=== PATIENT | male | born 1950 | race Caucasian/White ===

== ENCOUNTER → 2017-06-23 | Outpatient (CLI) | payer OTHER, MEDICARE ==
[~2017-06-23] MED LIST: ACET500T57 PO; ALLO300T2 PO; WARF10TA4 PO
[2017-06-23 09:32] LABS: BASO % 0.3 %; BASO ABS # 0.02 K/uL (0-0.2); COMPLETE YES; EOS % 2.1 %; HEMATOCRIT 46.6 % (42-52); IG% 0.4 %; LYMPH % 23.7 %; LYMPH ABS # 1.79 K/uL (1.2-3.4); MEAN CELL VOLUME 87.9 fL (80-100); MEAN CORPUSCULAR HEMOGLOBIN 30.2 pg (25-34); MEAN CORPUSCULAR HGB CONC 34.3 g/dl (32-36); MEAN PLATELET VOLUME 10.6 fL (7.4-10.4); MONO % 8.8 %; NEUT % 64.7 %; PLATELET COUNT 147 K/uL (130-400); WHITE BLOOD COUNT 7.54 K/uL (4.8-10.8)
[2017-06-23 10:22] LABS: ALB/GLOB RATIO 1.3 (0.9-2); ALKALINE PHOSPHATASE 70 U/L (45-117); ALT/SGPT 27 U/L (12-78); AST/SGOT 32 U/L (15-37); BLOOD UREA NITROGEN 16 mg/dl (7-18); BUN/CREATININE RATIO 18.6 (10-20); CALCIUM 8.7 mg/dl (8.5-10.1); CARBON DIOXIDE 26 mmol/L (21-32); CHLORIDE 110 mmol/L (98-107); CREATININE 0.85 mg/dl (0.60-1.40); GLUCOSE 98 mg/dl (70-99); HDL CHOLESTEROL 41 mg/dl; POTASSIUM 4.3 mmol/L (3.5-5.1); SODIUM 142 mmol/L (136-145)
[2017-06-23 10:30] LABS: CHOLESTEROL 220 mg/dl (0-200); CHOLESTEROL/HDL RATIO 5.4; LDL CHOLESTEROL CALCULATED 152 mg/dl; TRIGLYCERIDES 136 mg/dl (0-150); VERY LOW DENSITY LIPOPROT CALC 27 mg/dl
== END | disposition home or self-care (01) ==
LOC: C.LAB 08:59
PROVIDERS: ATTEND Internal Medicine
DX: Z00.00 Encounter for general adult medical examination without abnormal findings (principal)